=== PATIENT | female | born 1995 | race American Indian/Alaskan Native ===

== ENCOUNTER 2018-08-29 18:29 | Emergency (ER) | payer MEDICAID, OTHER ==
[2018-08-29] MEDS ORDERED: NACL 0.9% 500 ML 500 ML IV ONE (19:23)
[2018-08-29 19:37] LABS: Basophils # (Auto) 0.1 K/mm3 (0.0-0.1); Basophils % (Auto) 0.5 % (0.0-1.8); Eosinophils # (Auto) 0.1 K/mm3 (0.0-0.4); Eosinophils % (Auto) 0.9 % (0.0-4.3); Hemoglobin 11.6 gm/dl (10.1-14.3); Lymphocytes # (Auto) 2.8 K/mm3 (1.2-5.4); Lymphocytes % (Auto) 27.4 % (13.4-35.0); Mean Corpuscular HGB Conc 34 % (30-34); Monocytes % (Auto) 10.2 % (0.0-7.3); Platelet Count 249 K/mm3 (140-440); Red Blood Count 4.91 M/mm3 (3.65-5.03)
[2018-08-29 19:41] LABS: Mean Corpuscular Volume 69 fl (79-97)
[2018-08-29 19:48] LABS: INR 0.96 (0.87-1.13)
[2018-08-29 19:57] LABS: Alanine Aminotransferase 9 units/L (7-56); Albumin 4.3 g/dL (3.9-5); BUN/Creatinine Ratio 10; Blood Urea Nitrogen 6 mg/dL (7-17); Calcium 9.3 mg/dL (8.4-10.2); Hemolysis Index 3
--- NOTE | 2018-08-29 21:04 | XRay Report ---
FINAL REPORT EXAM: XR CHEST ROUTINE 2V HISTORY: possible Sepsis TECHNIQUE: Two views of the chest Comparison: None FINDINGS: Low volume exam. Normal heart size. Increased bronchial wall thickening in the posterior costophrenic sulci. No pleural effusion. Imaged axial skeleton is unremarkable. No free air identified. Air-filled distended splenic flexure. Bilateral nipple clips. IMPRESSION: Bronchial wall thickening to the lower lobe suggestive of bronchitis. Low volume exam.
[2018-08-29] MEDS ORDERED: TYLENOL ONE (22:23)
[2018-08-29] MEDS ORDERED: MORPHINE IV ONE (23:16)
[2018-08-29] MEDS ORDERED: NACL 0.9% 1000 ML 1,000 ML IV ONE (23:16)
[2018-08-29] MEDS ORDERED: ZOFRAN IV ONE (23:16)
[2018-08-29 23:35] LABS: Bilirubin,Urine NEG (Negative); Blood,Urine LG (Negative); Color,Urine Amber (Yellow); Mucus,Urine 3+ /HPF
[2018-08-29 23:37] LABS: RBC,Urine > 182.0 /HPF (0.0-6.0)
[2018-08-30] MEDS ORDERED: BENADRYL ONE (00:05)
[2018-08-30] MEDS ORDERED: BENADRYL IV ONE (00:06)
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
--- NOTE | 2018-08-30 02:03 | Ultrasound Report ---
FINAL REPORT PROCEDURE: US OB <= 14 WEEKS FETUS TECHNIQUE: Real-time transabdominal and transvaginal sonography of the uterus, placenta, amniotic fl uid, adnexa, and fetus was performed with image documentation. Measurements were obtained to determin e age/size. M-mode Doppler was used to document heartbeat. CPT 59030 and 59890 HISTORY: recent on Wednesday with pelvic pain COMPARISON: No prior studies are available for comparison. FINDINGS: The uterus size is 13.4 x 6.2 x 7 2 centimeters. The endometrium is thickened at 39 millimeters. The right ovary size is 3.4 x 1.6 x 1.7 centimeters. The echogenicity is normal. The left ovary size is 2 .3 x 2.6 x 1.7 centimeters. The echogenicity is normal. The patient has a history of pelvic pain 3 days after surgical . The enlarged uterus and thic kened endometrium appears appropriate for the patient's history. IMPRESSION: The uterus is slightly enlarged with thickened endometrium. The ovaries have a normal appearance. The findings are consistent with the patient's history.
--- NOTE | 2018-08-30 02:04 | Ultrasound Report ---
FINAL REPORT PROCEDURE: US OB <= 14 WEEKS FETUS TECHNIQUE: Real-time transabdominal and transvaginal sonography of the uterus, placenta, amniotic fl uid, adnexa, and fetus was performed with image documentation. Measurements were obtained to determin e age/size. M-mode Doppler was used to document heartbeat. CPT 20463 and 80832 HISTORY: recent on Wednesday with pelvic pain COMPARISON: No prior studies are available for comparison. FINDINGS: The uterus size is 13.4 x 6.2 x 7 2 centimeters. The endometrium is thickened at 39 millimeters. The right ovary size is 3.4 x 1.6 x 1.7 centimeters. The echogenicity is normal. The left ovary size is 2 .3 x 2.6 x 1.7 centimeters. The echogenicity is normal. The patient has a history of pelvic pain 3 days after surgical . The enlarged uterus and thic kened endometrium appears appropriate for the patient's history. IMPRESSION: The uterus is slightly enlarged with thickened endometrium. The ovaries have a normal appearance. The findings are consistent with the patient's history.
[2018-08-30 02:22] VITALS: BP 99/52
[2018-08-30] MEDS ORDERED: TYLENOL PO ONE (03:59)
== END 2018-08-30 04:36 | disposition home or self-care (01) ==
LOC: ED 18:29
DX: N93.9 Abnormal uterine and vaginal bleeding, unspecified (principal); R10.30 Lower abdominal pain, unspecified; R51 Headache; Z86.2 Personal history of diseases of the blood and blood-forming organs and certain disorders involving the immune mechanism; Z79.899 Other long term (current) drug therapy; Z88.2 Allergy status to sulfonamides; Z88.0 Allergy status to penicillin
CPT/HCPCS: 36415; 71046; 76801; 76817; 80053; 81001; 82140; 82805; 84702; 85025; 85610; 87040; 87086; 93005; 93010; 96361; 96374; 96375; 99285; J1200; J2270; J2405; J7030

== ENCOUNTER 2019-02-12 00:21 | Emergency (ER) | payer SELFPAY ==
[2019-02-12 00:39] VITALS: BP 111/60
--- NOTE | 2019-02-12 01:17 | XRay Report ---
CHEST 1 VIEW INDICATION / CLINICAL INFORMATION: Chest Pain. COMPARISON: None available. FINDINGS: SUPPORT DEVICES: None. HEART / MEDIASTINUM: No significant abnormality. LUNGS / PLEURA: No significant pulmonary or pleural abnormality. No pneumothorax. ADDITIONAL FINDINGS: No significant additional findings. IMPRESSION: 1. No acute findings. Signer Name: Preston Baldwin MD Signed: 02/12/2019 1:12 AM Workstation Name: [email or web address]
== END 2019-02-12 01:38 | disposition left against medical advice (07) ==
LOC: ED 00:21
DX: R51 Headache (principal); R07.89 Other chest pain; Z53.21 Procedure and treatment not carried out due to patient leaving prior to being seen by health care provider
CPT/HCPCS: 71045; 93005; 93010

== ENCOUNTER 2019-04-15 12:04 | Emergency (ER) | payer SELFPAY ==
--- NOTE | 2019-04-15 12:15 | Event Note ---
ED Screening Note Date of service: 04/15/19 Time: 12:12 ED Screening Note: This is a 23 y.o. F. that presents to the ER with redness and pain around right areola x 2 days. Patient states she had nipple piercing for 3 years and never had an issue until recently. Reports foul drainage. This initial assessment/diagnostic orders/clinical plan/treatment(s) is/are subject to change based on patients health status, clinical progression and re- assessment by fellow clinical providers in the ED. Further treatment and workup at subsequent clinical providers discretion. Patient/guardian urged not to elope from the ED as their condition may be serious if not clinically assessed and managed. Initial orders include: ACC for further evaluation
[2019-04-15 12:18] VITALS: BP 117/73
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
== END 2019-04-15 14:14 | disposition home or self-care (01) ==
LOC: ED 12:04
DX: L25.9 Unspecified contact dermatitis, unspecified cause (principal); N61.0 Mastitis without abscess
CPT/HCPCS: 99282

== ENCOUNTER 2021-10-20 03:02 | Emergency (ER) | payer BC, MEDICAID ==
[2021-10-20] MEDS ORDERED: ASPIRIN 325 MG TAB PO ONE (03:21)
[2021-10-20 04:07] LABS: Eosinophils % (Auto) 1.2 % (0.0-4.3); Hematocrit 37.5 % (30.3-42.9); Hemoglobin 12.1 gm/dl (10.1-14.3); Mean Corpuscular HGB Conc 32 % (30-34); Mean Corpuscular Volume 72 fl (79-97); Monocytes % (Auto) 7.5 % (0.0-7.3); Platelet Count 262 K/mm3 (140-440); Red Blood Count 5.19 M/mm3 (3.65-5.03); Red Cell Distribution Width 14.4 % (13.2-15.2)
[2021-10-20 04:36] LABS: Alanine Aminotransferase 8 units/L (7-56); Albumin 4.1 g/dL (3.9-5); Blood Urea Nitrogen 7 mg/dL (7-17); Calcium 9.5 mg/dL (8.4-10.2); Hemolysis Index 7
[2021-10-20 04:40] LABS: BUN/Creatinine Ratio 10
--- NOTE | 2021-10-20 04:40 | XRay Report ---
CHEST 2 VIEWS INDICATION / CLINICAL INFORMATION: CHEST PAIN. COMPARISON: 02/12/19. FINDINGS: SUPPORT DEVICES: None. HEART / MEDIASTINUM: The heart size and pulmonary vasculature are normal. The aorta is normal in kristin jono. LUNGS / PLEURA: No significant pulmonary or pleural abnormality. No pneumothorax. ADDITIONAL FINDINGS: There are bilateral nipple piercings. There is also is a piercing above the manu brium. IMPRESSION: No acute abnormality or significant change. Signer Name: Vick Crawford MD Signed: 10/20/2021 4:35 AM Workstation Name: [id number]
[2021-10-20 06:53] LABS: Basophils % (Manual) 0 % (0.0-1.8); Total Cells Counted 100
[2021-10-20 06:54] LABS: Hypochromasia 1+; Ovalocytes Few; Platelet Estimate Consistent w Auto; Poikilocytosis 1+; Target Cells Few
[2021-10-20] MEDS ORDERED: KETOROLAC 10 MG TAB PO ONE (08:24)
[2021-10-20] MEDS ORDERED: DICYCLOMINE 10 MG/5 ML ORAL LIQD PO ONE (08:24)
[2021-10-20] MEDS ORDERED: LIDOCAINE VISCOUS 2% 15 ML ORAL LIQD PO ONE (08:24)
[2021-10-20] MEDS ORDERED: ALUM-MAG HYDROXIDE-SIMETHICONE 200-200-20MG/5ML ORAL LIQD 30 ML PO ONE (08:24)
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
[2021-10-20 09:09] VITALS: BP 133/82
--- NOTE | 2021-10-20 11:49 | Electrocardiograph Report ---
[facility] Test Date: 2021-10-20 Test Time: 03:12:08 Pat Name: EPIFANIO GARDINER Department: Room: Gender: F Director [employer]: [id number] : 1995 Requested By: ED DOC Order Number: [id number] Reading MD: Isaak Taylor Measurements Intervals [place] Rate: 62 P: 68 NV: 158 QRS: 60 QRSD: 60 T: 63 QT: 400 QTc: 406 Interpretive Statements Sinus rhythm Probable left atrial enlargement No previous ECG available for comparison Electronically Signed On 10-20-2021 11:49:25 EDT by Isaak Taylor
== END 2021-10-20 09:09 | disposition home or self-care (01) ==
LOC: ED 03:02
DX: R07.9 Chest pain, unspecified (principal)
CPT/HCPCS: 36415; 71046; 80053; 84484; 85007; 85025; 93005; 99284